=== PATIENT | male | born 1970 | race Caucasian/White ===

== ENCOUNTER 2017-07-18 03:25 | Emergency (ER) | payer OTHER ==
[~2017-07-18] VITALS: Ht 170.2 cm; Wt 94.8 kg
[~2017-07-18 03:25] MED LIST: ACET-6134 PO; DIVA500T1 PO; LORA-476 PO
[2017-07-18] MEDS ORDERED: NACL 0.9% 1,000 ML IV ONE (03:35)
[2017-07-18 03:37] VITALS: BP 135/88
--- NOTE | 2017-07-18 03:44 | NUR ---
LAB at bedside.
--- NOTE | 2017-07-18 03:44 | NUR ---
Patient ambulated to bed 07.
--- NOTE | 2017-07-18 03:50 | NUR ---
GAUGE 20 IV LINE ESTABLISHED TO THE LEFT WRIST. BLOOD ALSO DRAWN AND SENT TO THE LAB.
--- NOTE | 2017-07-18 03:53 | NUR ---
NS 1 LITER BOLUS GIVEN.
[2017-07-18 03:55] LABS: BASOPHILS # (AUTO) 0.3 K/uL (0.00-0.22); BASOPHILS % (AUTO) 3.6 % (0.0-2.0); EOSINOPHILS # (AUTO) 0.2 K/uL (0-0.4); EOSINOPHILS % (AUTO) 2.4 % (0.0-4.0); HEMATOCRIT 47.4 % (36-52); HEMOGLOBIN 16.5 g/dL (12.0-18.0); LYMPHOCYTES # (AUTO) 2.5 K/uL (2.0-11.5); LYMPHOCYTES % (AUTO) 31.7 % (20.5-51.1); MEAN CORPUSCULAR HEMOGLOBIN 33 pg (27-31); MEAN CORPUSCULAR HGB CONC 35 g/dL (33-37); MEAN CORPUSCULAR VOLUME 94 fL (80-94); MONOCYTES # (AUTO) 0.6 K/uL (0.8-1.0); MONOCYTES % (AUTO) 7.3 % (1.7-9.3); NEUTROPHILS # (AUTO) 4.4 K/uL (1.8-7.7); PLATELET COUNT (AUTO) 220 K/uL (140-450); RED BLOOD CELL COUNT(AUTO) 5.05 MIL/uL (4.20-6.10); RED CELL DISTRIBUTION WIDTH 12.3 % (11.6-13.7)
--- NOTE | 2017-07-18 04:12 | NUR ---
WENT FOR ABDOMINAL SERIES VIA WHEELCHAIR.
[2017-07-18 04:23] LABS: CARBON DIOXIDE 22.6 mmol/L (21-32)
[2017-07-18 04:24] LABS: CREATININE 0.8 mg/dL (0.7-1.3); TOTAL BILIRUBIN 0.4 mg/dL (0.0-1.0)
[2017-07-18 04:25] LABS: ALBUMIN 3.7 g/dL (3.4-5.0)
--- NOTE | 2017-07-18 04:25 | NUR ---
BACK FROM X-RAY.
[2017-07-18 04:26] LABS: ANION GAP 12.4 (8-16)
--- NOTE | 2017-07-18 04:43 | NUR ---
Dr. Curtis evaluating patient at bedside.
[2017-07-18 04:59] VITALS: BP 127/72
== END 2017-07-18 04:59 | disposition home or self-care (01) ==
LOC: MED 03:25
DX: K52.9 Noninfective gastroenteritis and colitis, unspecified (principal); K59.00 Constipation, unspecified; R03.0 Elevated blood-pressure reading, without diagnosis of hypertension; F32.9 Major depressive disorder, single episode, unspecified; F41.9 Anxiety disorder, unspecified; Z88.5 Allergy status to narcotic agent; Z88.8 Allergy status to other drugs, medicaments and biological substances; Z79.899 Other long term (current) drug therapy
CPT/HCPCS: 36415; 74022; 80053; 85025; 96360; 99285; J7030

== ENCOUNTER 2017-10-25 07:33 | Emergency (ER) | payer OTHER ==
[~2017-10-25] VITALS: Ht 170.2 cm; Wt 95.7 kg
--- NOTE | 2017-10-25 07:40 | NUR ---
Patient to bed 08.
[2017-10-25 07:41] VITALS: BP 129/75
--- NOTE | 2017-10-25 07:50 | NUR ---
PATIENT PRESENTS TO ED WITH c/o headache and feeling of dehydration . PT STATES he woke up this morning feeling dehydrated and dizzy. Patient states he takes Depakote for severe depression . ; SKIN IS PINK/WARM/DRY; AAOX4 WITH EVEN AND STEADY GAIT; LUNGS CLEAR BL; HR EVEN AND REGULAR; PT DENIES ANY FEVER, CP, SOB, OR COUGH AT THIS TIME; PATIENT STATES PAIN OF 8/10 AT THIS TIME; VSS; PATIENT POSITIONED FOR COMFORT; HOB ELEVATED; BEDRAILS UP X2; BED DOWN. ER MD MADE AWARE OF PT STATUS.
[2017-10-25] MEDS ORDERED: NACL 0.9% 1,000 ML IV ONE (07:55)
[2017-10-25] MEDS ORDERED: ACETAMINOPHEN/CODEINE 300/30MG 1 TAB PO ONE (08:20)
--- NOTE | 2017-10-25 08:31 | NUR ---
Pt back from CT via [facility].
[2017-10-25 08:44] LABS: BASOPHILS # (AUTO) 0.2 K/uL (0.00-0.22); BASOPHILS % (AUTO) 3.5 % (0.0-2.0); EOSINOPHILS # (AUTO) 0.1 K/uL (0-0.4); EOSINOPHILS % (AUTO) 2.3 % (0.0-4.0); HEMATOCRIT 50.7 % (36-52); HEMOGLOBIN 16.2 g/dL (12.0-18.0); LYMPHOCYTES # (AUTO) 1.7 K/uL (2.0-11.5); LYMPHOCYTES % (AUTO) 31.2 % (20.5-51.1); MEAN CORPUSCULAR HEMOGLOBIN 31 pg (27-31); MEAN CORPUSCULAR HGB CONC 32 g/dL (33-37); MEAN CORPUSCULAR VOLUME 96 fL (80-94); MONOCYTES # (AUTO) 0.5 K/uL (0.8-1.0); MONOCYTES % (AUTO) 9.9 % (1.7-9.3); NEUTROPHILS % (AUTO) 53.1 % (42.2-75.2); PLATELET COUNT (AUTO) 219 K/uL (140-450); RED BLOOD CELL COUNT(AUTO) 5.26 MIL/uL (4.20-6.10); RED CELL DISTRIBUTION WIDTH 12.4 % (11.6-13.7); WHITE BLOOD COUNT (AUTO) 5.5 K/uL (4.8-10.8)
[2017-10-25 09:00] LABS: ANION GAP 11.7 (8-16); CARBON DIOXIDE 25.6 mmol/L (21-32); CREATININE 0.8 mg/dL (0.7-1.3); POTASSIUM 4.3 mmol/L (3.5-5.1)
[2017-10-25 09:05] LABS: ALBUMIN 3.6 g/dL (3.4-5.0); TOTAL BILIRUBIN 0.5 mg/dL (0.0-1.0)
[2017-10-25 09:43] VITALS: BP 119/73
--- NOTE | 2017-10-25 09:43 | NUR ---
Patient discharged with v/s stable. Written and verbal after care instructions given and explained. Patient verbalized understanding. Ambulatory with steady gait. All questions addressed prior to discharge. Advised to follow up with PMD.
== END 2017-10-25 09:43 | disposition home or self-care (01) ==
LOC: MED 07:33
DX: Z88.8 Allergy status to other drugs, medicaments and biological substances (principal); Z79.899 Other long term (current) drug therapy
CPT/HCPCS: 36415; 70450; 80053; 85025; 96360; 99285; J7030

== ENCOUNTER 2018-01-07 01:40 | Emergency (ER) | payer OTHER ==
[~2018-01-07] VITALS: Ht 170.2 cm; Wt 95.9 kg
[2018-01-07 01:46] VITALS: BP 141/72
--- NOTE | 2018-01-07 01:53 | NUR ---
PATIENT AMBULATED TO BED 11
--- NOTE | 2018-01-07 02:01 | NUR ---
47/M CAME IN W C/O N/V X1, COUGH, RUNNY NOSE, HEADACHE X1 DAY. ALL LUNG SOUNDS CBTA, 18RR EVEN AND UNLABORED. BS ACTIVE X4, ABD SOFT, ROUND -TENDERNESS, DENIES FEVER/CHILLS. PMH: DEPRESSION
[2018-01-07] MEDS ORDERED: diphenhydrAMINE 50 MG/ML VIAL IVP ONE (02:40)
[2018-01-07] MEDS ORDERED: PROCHLORPERAZINE 10 MG/2 ML VIAL IVP ONE (02:40)
[2018-01-07] MEDS ORDERED: NACL 0.9% 1,000 ML IV ONE (02:40)
[2018-01-07 04:43] VITALS: BP 131/70
--- NOTE | 2018-01-17 05:17 | NUR ---
01/07/18, 0410: END TIME NS 1000ML
== END 2018-01-07 04:43 | disposition home or self-care (01) ==
LOC: MED 01:40
DX: A08.4 Viral intestinal infection, unspecified (principal); E86.0 Dehydration; F32.9 Major depressive disorder, single episode, unspecified; Z88.5 Allergy status to narcotic agent; Z88.8 Allergy status to other drugs, medicaments and biological substances; Z79.899 Other long term (current) drug therapy
CPT/HCPCS: 36415; 87804; 96361; 96374; 96375; 99284; J0780; J1200; J7030

== ENCOUNTER 2018-03-21 06:55 | Emergency (ER) | payer OTHER ==
[~2018-03-21] VITALS: Ht 170.2 cm; Wt 94.3 kg
[2018-03-21 07:11] VITALS: BP 117/74
--- NOTE | 2018-03-21 07:18 | NUR ---
47M BIB SELF WITH C/O "FEELING ANXIETY" X 2 DAYS, PROGRESSIVELY GETTING WORSE. PT STS HX OF ANXIETY. PT ALSO REPORTS OF CONGESION AND 10/10 INTERMITTENT "ALL OVER HEADACHE". PT IS AOX4 WITH STEADY GAIT, CLEAR SPEECH. RR ARE EVEN AND UNLABORED. AWAITING ER MD HUGHES. WILL CONTINUE TO MONITOR.
--- NOTE | 2018-03-21 07:59 | NUR ---
lab by bedside
[2018-03-21 08:24] LABS: BASOPHILS # (AUTO) 0.1 K/uL (0.00-0.22); BASOPHILS % (AUTO) 1.2 % (0.0-2.0); EOSINOPHILS # (AUTO) 0.2 K/uL (0-0.4); EOSINOPHILS % (AUTO) 2.9 % (0.0-4.0); HEMATOCRIT 46.7 % (36-52); HEMOGLOBIN 15.8 g/dL (12.0-18.0); LYMPHOCYTES # (AUTO) 2.5 K/uL (2.0-11.5); LYMPHOCYTES % (AUTO) 40.7 % (20.5-51.1); MEAN CORPUSCULAR HEMOGLOBIN 32 pg (27-31); MEAN CORPUSCULAR HGB CONC 34 g/dL (33-37); MEAN CORPUSCULAR VOLUME 94.2 fL (80-94); MONOCYTES # (AUTO) 0.8 K/uL (0.8-1.0); MONOCYTES % (AUTO) 13.8 % (1.7-9.3); NEUTROPHILS # (AUTO) 2.5 K/uL (1.8-7.7); NEUTROPHILS % (AUTO) 41.4 % (42.2-75.2); PLATELET COUNT (AUTO) 206 K/uL (140-450); RED BLOOD CELL COUNT(AUTO) 4.96 MIL/uL (4.20-6.10); RED CELL DISTRIBUTION WIDTH 13.3 % (11.6-13.7); WHITE BLOOD COUNT (AUTO) 6.1 K/uL (4.8-10.8)
[2018-03-21 08:30] LABS: ANION GAP 12.5 (8-16); CARBON DIOXIDE 26.3 mmol/L (21-32); CREATININE 0.7 mg/dL (0.7-1.3); POTASSIUM 3.8 mmol/L (3.5-5.1)
[2018-03-21 08:35] LABS: ALBUMIN 3.5 g/dL (3.4-5.0); TOTAL BILIRUBIN 0.4 mg/dL (0.0-1.0)
[2018-03-21 10:10] VITALS: BP 121/70
== END 2018-03-21 10:10 | disposition home or self-care (01) ==
LOC: MED 06:55
DX: F41.9 Anxiety disorder, unspecified (principal); Z88.6 Allergy status to analgesic agent
CPT/HCPCS: 36415; 71045; 80053; 85025; 99285; Q0092

== ENCOUNTER 2018-04-04 00:33 | Emergency (ER) | payer OTHER ==
[~2018-04-04] VITALS: Ht 170.2 cm; Wt 94.8 kg
[2018-04-04 00:38] VITALS: BP 154/96
--- NOTE | 2018-04-04 00:43 | NUR ---
PT AMBULATED TO ER BED 02
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
--- NOTE | 2018-04-04 01:19 | NUR ---
Patient appears to be resting comfortably in bed. Vital Signs within normal limits. Respirations even and unlabored.
[2018-04-04] MEDS ORDERED: LORazepam 2 MG/ML VIAL IM ONE (02:15)
[2018-04-04] MEDS ORDERED: BACITRACIN OINT 500 UNITS/GM PKT TP ONE (02:15)
[2018-04-04] MEDS ORDERED: KETOROLAC 60 MG/2 ML VIAL IM ONE (02:15)
[2018-04-04] MEDS ORDERED: LIDOCAINE 1% ***ER ONLY *** 10 MG/ML VIAL INJ ONE (02:15)
[2018-04-04] MEDS ORDERED: LIDOCAINE MPF 1% - **ER/OR** 10 ML ONE (02:24)
--- NOTE | 2018-04-04 03:20 | NUR ---
Patient has a LARGE laceration to RT SIDE OF FACE. Dr. DELEON applied sutures using sterile technique. Edges well approximated. Site cleansed with BETADINE AND NORMAL SALINE. No bleeding noted. Pt tolerated well.
[2018-04-04 04:09] VITALS: BP 124/77
== END 2018-04-04 04:13 | disposition home or self-care (01) ==
LOC: MED 00:33
DX: S01.411A Laceration without foreign body of right cheek and temporomandibular area, initial encounter (principal); S21.111A Laceration without foreign body of right front wall of thorax without penetration into thoracic cavity, initial encounter; Z88.8 Allergy status to other drugs, medicaments and biological substances; W26.0XXA Contact with knife, initial encounter; Y93.89 Activity, other specified; Y99.8 Other external cause status; Y92.89 Other specified places as the place of occurrence of the external cause
CPT/HCPCS: 12002; 12015; 96372; 99284; J1885; J2001; J2060

== ENCOUNTER 2018-06-06 05:15 | Emergency (ER) | payer OTHER ==
[~2018-06-06] VITALS: Ht 170.2 cm; Wt 98.0 kg
[2018-06-06 05:20] VITALS: BP 151/79
--- NOTE | 2018-06-06 05:27 | NUR ---
PATIENT PRESENTS TO ED WITH ABD PAIN IN X4 QUADRANTS WITH N/V/D X3 HOURS. PT STATES HX OF IBS AND CANNOT FIND COMFORT AT THIS TIME. DENIES N/V/D; SKIN IS PINK/WARM/DRY; AAOX4 WITH EVEN AND STEADY GAIT; LUNGS CLEAR BL; HR EVEN AND REGULAR; PT DENIES ANY FEVER, CP, SOB, OR COUGH AT THIS TIME; PATIENT STATES PAIN OF 6/10 AT THIS TIME; VSS; PATIENT POSITIONED FOR COMFORT; HOB ELEVATED; BEDRAILS UP X2; BED DOWN. ER MD MADE AWARE OF PT STATUS. CONTINUE TO MONITOR.
--- NOTE | 2018-06-06 05:27 | NUR ---
PT AMBULATED TO ER BED 05
[2018-06-06] MEDS ORDERED: NACL 0.9% 1,000 ML IV ONE (06:20)
[2018-06-06] MEDS ORDERED: ONDANSETRON 4 MG/2 ML VIAL IVP ONE (06:20)
--- NOTE | 2018-06-06 07:00 | NUR ---
REPORT GIVEN TO DOMONIQUE ANGUIANO.
--- NOTE | 2018-06-06 07:00 | NUR ---
RECEIVED REPORT FROM CARMINA ANGUIANO. Patient appears to be resting comfortably in bed. Vital Signs within normal limits. Respirations even and unlabored.WILL CONTINUE TO MONITOR.
[2018-06-06 07:25] LABS: HEMATOCRIT 47.1 % (36-52); HEMOGLOBIN 15.9 g/dL (12.0-18.0); MEAN CORPUSCULAR HEMOGLOBIN 32 pg (27-31); MEAN CORPUSCULAR HGB CONC 34 g/dL (33-37); MEAN CORPUSCULAR VOLUME 95.1 fL (80-94); PLATELET COUNT (AUTO) 234 K/uL (140-450); RED BLOOD CELL COUNT(AUTO) 4.95 MIL/uL (4.20-6.10); RED CELL DISTRIBUTION WIDTH 13.2 % (11.6-13.7); WHITE BLOOD COUNT (AUTO) 9.3 K/uL (4.8-10.8)
[2018-06-06 07:31] LABS: ANION GAP 12.7 (8-16); CARBON DIOXIDE 24.4 mmol/L (21-32); POTASSIUM 4.1 mmol/L (3.5-5.1)
[2018-06-06 07:36] LABS: ALBUMIN 3.6 g/dL (3.4-5.0); TOTAL BILIRUBIN 0.2 mg/dL (0.0-1.0)
[2018-06-06 07:49] LABS: EOSINOPHILS % (MANUAL) 1 % (0-4); LYMPHOCYTES % (MANUAL) 26 % (20-46); MONOCYTES % (MANUAL) 8 % (5-12)
--- NOTE | 2018-06-06 08:30 | NUR ---
Patient appears to be resting comfortably in bed. Vital Signs within normal limits. Respirations even and unlabored.will continue to monitor.
[2018-06-06 08:31] LABS: APPEARANCE,URINE CLEAR (CLEAR); BILIRUBIN,URINE NEGATIVE (NEGATIVE); BLOOD, URINE TRACE-I (NEGATIVE); COLOR,URINE YELLOW (YELLOW); LEUKOCYTE ESTERASE ,URINE NEGATIVE (NEGATIVE); NITRITE, URINE NEGATIVE (NEGATIVE); PH,URINE 5.5 (5.0-9.0); UGLUCOSE NEGATIVE (NEGATIVE)
[2018-06-06 08:54] LABS: RBC,URINE 0-5 (RARE) /HPF (0-5); WBC,URINE 0-5 (RARE) /HPF (0-5)
[2018-06-06 09:11] VITALS: BP 116/68
--- NOTE | 2018-06-06 09:11 | NUR ---
Patient discharged with v/s stable. Written and verbal after care instructions given and explained. Patient alert, oriented and verbalized understanding of instructions. Ambulatory with steady gait. All questions addressed prior to discharge. ID band removed. Patient advised to follow up with PMD. Rx of YULY LOYA & XIOMARA given. Patient educated on indication of medication including possible reaction and side effects. Opportunity to ask questions provided and answered.
== END 2018-06-06 09:11 | disposition home or self-care (01) ==
LOC: MED 05:15
DX: K52.9 Noninfective gastroenteritis and colitis, unspecified (principal); Z88.6 Allergy status to analgesic agent; Z79.899 Other long term (current) drug therapy
CPT/HCPCS: 36415; 74022; 74176; 80053; 81001; 82150; 83690; 85025; 96361; 96374; 99285; J2405; J7030

== ENCOUNTER 2018-09-23 20:46 | Emergency (ER) | payer OTHER ==
[~2018-09-23] VITALS: Ht 170.2 cm; Wt 97.1 kg
[2018-09-23 20:48] VITALS: BP 125/90
--- NOTE | 2018-09-23 20:51 | NUR ---
TO LOBBY A/W BED, SKY TAVERA NOTED
--- NOTE | 2018-09-23 21:58 | NUR ---
PT AMBULATED TO BED 11.
[2018-09-23] MEDS ORDERED: KETOROLAC 30 MG/ML VIAL IM ONE (22:25)
[2018-09-23] MEDS ORDERED: ONDANSETRON 4 MG ODT PO ONE (22:25)
[2018-09-24 00:25] VITALS: BP 125/90
--- NOTE | 2018-09-24 00:25 | NUR ---
Patient discharged with v/s stable. Written and verbal after care instructions given and explained. Patient alert, oriented and verbalized understanding of instructions. Ambulatory with steady gait. All questions addressed prior to discharge. ID band removed. Patient advised to follow up with PMD. Rx of Imitrex given. Patient educated on indication of medication including possible reaction and side effects. Opportunity to ask questions provided and answered.
== END 2018-09-24 00:25 | disposition home or self-care (01) ==
LOC: MED 20:46
DX: R51 Headache (principal); R11.10 Vomiting, unspecified; J45.909 Unspecified asthma, uncomplicated; F17.210 Nicotine dependence, cigarettes, uncomplicated; Z88.6 Allergy status to analgesic agent; Z88.8 Allergy status to other drugs, medicaments and biological substances
CPT/HCPCS: 96372; 99283; J1885; Q0162

== ENCOUNTER 2018-09-26 06:20 | Emergency (ER) | payer OTHER ==
[~2018-09-26] VITALS: Ht 170.2 cm; Wt 97.1 kg
[2018-09-26 06:25] VITALS: BP 136/90
--- NOTE | 2018-09-26 06:25 | NUR ---
TO BED # 6 AMBULATORY, REPORT GIVEN TO JAVIER ANGUIANO
--- NOTE | 2018-09-26 06:40 | NUR ---
48/M CAME IN ED WITH BROTHER, C/O ANXIETY, DIZZINESS AND CP, INTERMITTENTLY X6 DAYS. PT REPORTS 10/10 STERNAL PAIN, NONRADIATING. PT REPORTS N/V. AOX4, AMBULATORY, RR EVEN AND UNLABORED, PT REPORTS FEELING ANXIOUS, EXCESSIVE SPEECH NOTED. PT REPORTS TAKING ZOFRAN, ATIVAN AND TYLENOL WITH NO RELIEF. LUNG SOUNDS CLEAR BL. BS ACTIVE X4, ABD SOFT ROUND NONTENDER. HX ASTHMA, ANXIETY, DEPRESSION, BIPOLAR, IBS
--- NOTE | 2018-09-26 07:00 | NUR ---
DR PHILLIP AT BEDSIDE TO EVALUATE PT
[2018-09-26] MEDS ORDERED: ASPIRIN 81 MG TAB.CHEW PO ONE (07:10)
[2018-09-26] MEDS ORDERED: PANTOPRAZOLE 40 MG INJ VIAL IVP ONE (07:10)
[2018-09-26] MEDS ORDERED: ALUMINUM HYD/MAG/SIMETHICONE 30 ML UDC PO ONE (07:10)
[2018-09-26] MEDS ORDERED: LIDOCAINE VISCOUS 2% 20 ML UDC PO ONE (07:10)
--- NOTE | 2018-09-26 07:11 | NUR ---
received report from Jude ANGUIANO.
[2018-09-26 07:27] LABS: BASOPHILS # (AUTO) 0.1 K/uL (0.00-0.22); BASOPHILS % (AUTO) 1.2 % (0.0-2.0); EOSINOPHILS # (AUTO) 0.1 K/uL (0-0.4); EOSINOPHILS % (AUTO) 1.5 % (0.0-4.0); HEMATOCRIT 46.4 % (36-52); LYMPHOCYTES # (AUTO) 2.5 K/uL (2.0-11.5); LYMPHOCYTES % (AUTO) 30.2 % (20.5-51.1); MEAN CORPUSCULAR HEMOGLOBIN 32 pg (27-31); MEAN CORPUSCULAR HGB CONC 34 g/dL (33-37); MEAN CORPUSCULAR VOLUME 93.6 fL (80-94); MONOCYTES # (AUTO) 0.9 K/uL (0.8-1.0); MONOCYTES % (AUTO) 11.1 % (1.7-9.3); NEUTROPHILS # (AUTO) 4.6 K/uL (1.8-7.7); PLATELET COUNT (AUTO) 207 K/uL (140-450); RED BLOOD CELL COUNT(AUTO) 4.96 MIL/uL (4.20-6.10); RED CELL DISTRIBUTION WIDTH 13.2 % (11.6-13.7); WHITE BLOOD COUNT (AUTO) 8.2 K/uL (4.8-10.8)
--- NOTE | 2018-09-26 07:29 | NUR ---
patient medicated per er md tucker orders. brother by bedside. vsnilda. ned.
[2018-09-26 07:44] LABS: ANION GAP 14.5 (8-16); CARBON DIOXIDE 22.9 mmol/L (21-32); CREATININE 0.9 mg/dL (0.7-1.3); POTASSIUM 3.4 mmol/L (3.5-5.1)
[2018-09-26 07:50] LABS: ALBUMIN 3.5 g/dL (3.4-5.0); TOTAL BILIRUBIN 0.3 mg/dL (0.0-1.0)
--- NOTE | 2018-09-26 08:13 | NUR ---
patient resting with eyes closed. awaiting for radiology and lab results. vss. nad.
[2018-09-26] MEDS ORDERED: NITROGLYCERIN 2% 1 GM PKT TP ONE (08:25)
--- NOTE | 2018-09-26 08:36 | NUR ---
MEDICATED WITH NITROGLYCERINE BP 116/73 DENIES CHEST PAIN
[2018-09-26] MEDS ORDERED: ACETAMINOPHEN 325 MG TAB PO ONE (08:50)
--- NOTE | 2018-09-26 09:27 | NUR ---
Patient to be transferred for continuation of care. Is being transferred due to continuation of care. Receiving facility has accepting physician and available space. ER physician has signed transfer form. Patient or responsible green party has agreed to transfer and signed form. Patient belongings inventoried and will be sent with patient. Copy of nursing notes, lab reports, EKG, Physicians Orders and X-rays to be sent with patient. Report called to Dillon Barrios RN at receiving facility. [facility] ambulance service has been called for transfer. ETA is [phone].
--- NOTE | 2018-09-26 09:47 | NUR ---
[facility] ARRIVED FOR PT TRANSPORT TO [facility]
--- NOTE | 2018-09-26 10:01 | NUR ---
PATIENT LEFT ER VIA [facility] WITH [facility] DRIVER AND EMT. VSS. NAD. STABLE FOR TRANSFER. PT DENIES ANY CP, SOB, CHANGES IN VISION, OR DIZZINESS. PT EXITED ER WITHOUT INCIDIENT.
[2018-09-26 10:02] VITALS: BP 120/73
== END 2018-09-26 10:01 | disposition short-term general hospital (02) ==
LOC: MED 06:20
DX: R07.89 Other chest pain (principal); R11.2 Nausea with vomiting, unspecified; R10.10 Upper abdominal pain, unspecified; I10 Essential (primary) hypertension; F31.9 Bipolar disorder, unspecified; F41.9 Anxiety disorder, unspecified; K58.9 Irritable bowel syndrome, unspecified; J45.909 Unspecified asthma, uncomplicated; Z79.1 Long term (current) use of non-steroidal anti-inflammatories (NSAID); Z79.899 Other long term (current) drug therapy; Z88.8 Allergy status to other drugs, medicaments and biological substances
CPT/HCPCS: 36415; 71045; 80053; 82550; 82553; 84484; 85025; 93005; 96374; 99285; C9113; Q0092

== ENCOUNTER 2018-10-17 21:46 | Emergency (ER) | payer OTHER ==
[~2018-10-17] VITALS: Ht 170.2 cm; Wt 97.1 kg
[2018-10-17 22:01] VITALS: BP 142/76
--- NOTE | 2018-10-17 22:03 | NUR ---
TO LOBBY A/W BED, SKY KUNZ NOTED
--- NOTE | 2018-10-17 23:01 | NUR ---
Patient ambulated to bed 1. RN evaluating patient at bedside.
--- NOTE | 2018-10-17 23:20 | NUR ---
PT BIB SELF C/O ANXIETY, DEPRESSION, VOMITNG, NECK PAIN, BODYACHES, DIARRHEA, DIZZINESS, INSOMNIA, FOR 1 DAYS. PT DENIES N/V/D; SKIN IS INTACT, PINK/WARM/DRY; AAOX4, PERRL, WITH EVEN AND STEADY GAIT; LUNGS CLEAR BL, BREATHING UNLABORED; HR EVEN AND REGULAR, BL PERIPHERAL PULSES PRESENT; BS ACTIVE X4, NO TENDERNESS TO PALPATION. PT DENIES ANY FEVER, CP, SOB, OR COUGH AT THIS TIME; PT STATES 10/10 PAIN AT THIS TIME; VSS; PATIENT POSITIONED FOR COMFORT; HOB ELEVATED; BEDRAILS UP X2; BED DOWN.
[2018-10-17] MEDS ORDERED: LORazepam 2 MG/ML VIAL IM ONE (23:50)
[2018-10-18 00:39] LABS: ANION GAP 12.4 (8-16); CARBON DIOXIDE 28.4 mmol/L (21-32); POTASSIUM 4.8 mmol/L (3.5-5.1)
[2018-10-18 00:55] VITALS: BP 132/72
== END 2018-10-18 00:59 | disposition home or self-care (01) ==
LOC: MED 21:46
DX: F41.9 Anxiety disorder, unspecified (principal); R20.2 Paresthesia of skin; E86.0 Dehydration; R11.10 Vomiting, unspecified; R19.7 Diarrhea, unspecified; J45.909 Unspecified asthma, uncomplicated; Z88.8 Allergy status to other drugs, medicaments and biological substances; Z79.899 Other long term (current) drug therapy
CPT/HCPCS: 36415; 80048; 96372; 99284; J2060; 99283

== ENCOUNTER 2018-10-20 00:15 | Emergency (ER) | payer OTHER ==
[~2018-10-20] VITALS: Ht 170.2 cm; Wt 97.7 kg
[2018-10-20 00:30] VITALS: BP 140/80
[2018-10-20] MEDS ORDERED: NACL 0.9% 1,000 ML IV ONE (00:55)
[2018-10-20] MEDS ORDERED: KETOROLAC 30 MG/ML VIAL IVP ONE (00:55)
[2018-10-20 01:22] LABS: BASOPHILS # (AUTO) 0.1 K/uL (0.00-0.22); EOSINOPHILS # (AUTO) 0.1 K/uL (0-0.4); EOSINOPHILS % (AUTO) 1.4 % (0.0-4.0); HEMATOCRIT 49.3 % (36-52); HEMOGLOBIN 16.5 g/dL (12.0-18.0); LYMPHOCYTES # (AUTO) 1.8 K/uL (2.0-11.5); LYMPHOCYTES % (AUTO) 29.1 % (20.5-51.1); MEAN CORPUSCULAR HEMOGLOBIN 32 pg (27-31); MEAN CORPUSCULAR HGB CONC 34 g/dL (33-37); MEAN CORPUSCULAR VOLUME 94.4 fL (80-94); MONOCYTES # (AUTO) 0.8 K/uL (0.8-1.0); MONOCYTES % (AUTO) 12.8 % (1.7-9.3); NEUTROPHILS # (AUTO) 3.5 K/uL (1.8-7.7); NEUTROPHILS % (AUTO) 55.7 % (42.2-75.2); PLATELET COUNT (AUTO) 235 K/uL (140-450); RED BLOOD CELL COUNT(AUTO) 5.22 MIL/uL (4.20-6.10); RED CELL DISTRIBUTION WIDTH 13.4 % (11.6-13.7); WHITE BLOOD COUNT (AUTO) 6.2 K/uL (4.8-10.8)
[2018-10-20 01:33] LABS: ANION GAP 12.4 (8-16); CREATININE 0.9 mg/dL (0.7-1.3); POTASSIUM 4.4 mmol/L (3.5-5.1)
[2018-10-20 01:39] LABS: ALBUMIN 3.8 g/dL (3.4-5.0); TOTAL BILIRUBIN 0.4 mg/dL (0.0-1.0)
[2018-10-20 03:55] LABS: APPEARANCE,URINE CLEAR (CLEAR); BILIRUBIN,URINE NEGATIVE (NEGATIVE); BLOOD, URINE NEGATIVE (NEGATIVE); COLOR,URINE YELLOW (YELLOW); LEUKOCYTE ESTERASE ,URINE NEGATIVE (NEGATIVE); NITRITE, URINE NEGATIVE (NEGATIVE); PH,URINE 5.5 (5.0-9.0); UGLUCOSE NEGATIVE (NEGATIVE)
[2018-10-20 04:30] VITALS: BP 140/80
== END 2018-10-20 04:30 | disposition home or self-care (01) ==
LOC: MED 00:15
DX: E86.0 Dehydration (principal); J45.909 Unspecified asthma, uncomplicated; R19.7 Diarrhea, unspecified; Z88.8 Allergy status to other drugs, medicaments and biological substances; Z79.899 Other long term (current) drug therapy; Z79.1 Long term (current) use of non-steroidal anti-inflammatories (NSAID)
CPT/HCPCS: 36415; 80053; 81003; 82150; 83690; 85025; 96361; 96374; 99283; J1885; J7030

== ENCOUNTER 2018-11-26 00:25 | Emergency (ER) | payer OTHER ==
[~2018-11-26] VITALS: Ht 170.2 cm; Wt 97.1 kg
[2018-11-26 00:38] VITALS: BP 132/79
[2018-11-26] MEDS ORDERED: KETOROLAC 30 MG/ML VIAL IM ONE (01:10)
[2018-11-26] MEDS ORDERED: LORazepam 1 MG TAB PO ONE (01:10)
[2018-11-26] MEDS ORDERED: DICYCLOMINE 20 MG/2 ML VIAL IM ONE (01:10)
[2018-11-26 01:52] VITALS: BP 129/81
== END 2018-11-26 01:52 | disposition home or self-care (01) ==
LOC: MED 00:25
DX: R51 Headache (principal); R19.7 Diarrhea, unspecified; F41.9 Anxiety disorder, unspecified; J45.909 Unspecified asthma, uncomplicated; F03.90 Unspecified dementia, unspecified severity, without behavioral disturbance, psychotic disturbance, mood disturbance, and anxiety; Z79.899 Other long term (current) drug therapy; Z88.8 Allergy status to other drugs, medicaments and biological substances
CPT/HCPCS: 96372; 99284; J0500; J1885

== ENCOUNTER 2019-01-12 21:10 | Emergency (ER) | payer OTHER ==
[~2019-01-12] VITALS: Ht 170.2 cm; Wt 98.0 kg
[2019-01-12 21:36] VITALS: BP 154/87
--- NOTE | 2019-01-12 21:39 | NUR ---
PT RETURNED TO LOBBY IN STABLE CONDITION
--- NOTE | 2019-01-12 23:10 | NUR ---
PATIENT PRESENTS TO ED WITH C/O N/V/FEVER SINCE SATURDAY AND GENERALIZED WEAKNESS . PATIENT STATES PAIN OF 10/10 AT THIS TIME; VSS; PATIENT POSITIONED FOR COMFORT; HOB ELEVATED; BEDRAILS UP X2; BED DOWN. ER MD MADE AWARE OF PT STATUS.
--- NOTE | 2019-01-12 23:10 | NUR ---
PT TAKEN TO BED 2
[2019-01-12] MEDS ORDERED: NACL 0.9% 500 ML IV ONE (23:12)
[2019-01-12] MEDS ORDERED: ONDANSETRON 4 MG/2 ML VIAL IVP ONE (23:15)
[2019-01-12 23:33] LABS: RED BLOOD CELL COUNT(AUTO) 5.42 MIL/uL (4.20-6.10); WHITE BLOOD COUNT (AUTO) 7.7 K/uL (4.8-10.8)
[2019-01-12 23:34] LABS: HEMATOCRIT 51.2 % (36-52); HEMOGLOBIN 17.2 g/dL (12.0-18.0); MEAN CORPUSCULAR HEMOGLOBIN 32 pg (27-31); MEAN CORPUSCULAR HGB CONC 34 g/dL (33-37); MEAN CORPUSCULAR VOLUME 94.4 fL (80-94); RED CELL DISTRIBUTION WIDTH 13.1 % (11.6-13.7)
[2019-01-12 23:35] LABS: EOSINOPHILS % (AUTO) 0.9 % (0.0-4.0); LYMPHOCYTES % (AUTO) 11.7 % (20.5-51.1); MONOCYTES % (AUTO) 7.2 % (1.7-9.3); NEUTROPHILS % (AUTO) 79.7 % (42.2-75.2); PLATELET COUNT (AUTO) 196 K/uL (140-450)
[2019-01-12 23:36] LABS: BASOPHILS % (AUTO) 0.5 % (0.0-2.0); EOSINOPHILS # (AUTO) 0.1 K/uL (0-0.4); LYMPHOCYTES # (AUTO) 0.9 K/uL (2.0-11.5); MONOCYTES # (AUTO) 0.6 K/uL (0.8-1.0); NEUTROPHILS # (AUTO) 6.1 K/uL (1.8-7.7)
[2019-01-12 23:38] LABS: CARBON DIOXIDE 29.2 mmol/L (21-32); POTASSIUM 4.2 mmol/L (3.5-5.1)
[2019-01-12 23:44] LABS: ALBUMIN 3.9 g/dL (3.4-5.0); TOTAL BILIRUBIN 0.5 mg/dL (0.0-1.0)
[2019-01-12] MEDS ORDERED: MORPHINE SULFATE 4 MG/ML SYR IVP ONE (23:55)
--- NOTE | 2019-01-13 00:40 | NUR ---
PT DENIES HAVING ANY PAIN NOW.
[2019-01-13 00:45] VITALS: BP 132/68
--- NOTE | 2019-01-13 00:45 | NUR ---
Patient discharged with v/s stable. Written and verbal after care instructions given and explained. Patient alert, oriented and verbalized understanding of instructions. Ambulatory with steady gait. All questions addressed prior to discharge. ID band removed. Patient advised to follow up with PMD. Rx of ZOFRAN 4MG, TRAMADOL 50MG given. Patient educated on indication of medication including possible reaction and side effects. Opportunity to ask questions provided and answered.
== END 2019-01-13 00:45 | disposition home or self-care (01) ==
LOC: MED 21:10
DX: A08.4 Viral intestinal infection, unspecified (principal); Z88.6 Allergy status to analgesic agent; Z88.8 Allergy status to other drugs, medicaments and biological substances; Z79.1 Long term (current) use of non-steroidal anti-inflammatories (NSAID); Z79.899 Other long term (current) drug therapy; J45.909 Unspecified asthma, uncomplicated
CPT/HCPCS: 36415; 80053; 85025; 96361; 96374; 96375; 99283; J2270; J2405; J7030

== ENCOUNTER 2019-06-02 02:26 | Emergency (ER) | payer OTHER ==
[~2019-06-02] VITALS: Ht 170.2 cm; Wt 105.3 kg
[2019-06-02 02:32] VITALS: BP 179/97
[2019-06-02] MEDS ORDERED: LORazepam 2 MG/ML VIAL IVP ONE (02:45)
[2019-06-02] MEDS ORDERED: MORPHINE SULFATE 2 MG/ML SYR IVP ONE (02:45)
[2019-06-02] MEDS ORDERED: NACL 0.9% 1,000 ML IV ONE (02:45)
[2019-06-02] MEDS ORDERED: ONDANSETRON 4 MG/2 ML VIAL IVP ONE (02:45)
--- NOTE | 2019-06-02 02:47 | NUR ---
EKG PERFORMED AT BEDSIDE
--- NOTE | 2019-06-02 02:50 | NUR ---
PT TO ED WITH C/O HEADACHE WITH DIZZINESS, N/V, AND GENERALIZED WEAKNESS. PER PT "I HAVE THIS THROBBING PAIN IN MY HEAD AND IT MAKES ME NAUSEOUS AND I JUST DONT FEEL GOOD" PT ALERT TO NAME, BIRTHDAY, PLACE AND EVENT. ABD IS SOFT NON TENDER. NO NEURO DEFECITS NOTED. PT PLACED INTO BED, PENDING MD HUGHES.
[2019-06-02 02:53] LABS: APPEARANCE,URINE CLEAR (CLEAR); BILIRUBIN,URINE NEGATIVE (NEGATIVE); BLOOD, URINE TRACE-I (NEGATIVE); COLOR,URINE YELLOW (YELLOW); LEUKOCYTE ESTERASE ,URINE NEGATIVE (NEGATIVE); NITRITE, URINE NEGATIVE (NEGATIVE); UGLUCOSE NEGATIVE (NEGATIVE)
[2019-06-02 02:55] LABS: BASOPHILS # (AUTO) 0.1 K/uL (0.00-0.22); BASOPHILS % (AUTO) 0.8 % (0.0-2.0); EOSINOPHILS # (AUTO) 0.2 K/uL (0-0.4); EOSINOPHILS % (AUTO) 2.8 % (0.0-4.0); HEMATOCRIT 50.3 % (36-52); HEMOGLOBIN 17.2 g/dL (12.0-18.0); LYMPHOCYTES # (AUTO) 2.8 K/uL (2.0-11.5); LYMPHOCYTES % (AUTO) 36.1 % (20.5-51.1); MEAN CORPUSCULAR HEMOGLOBIN 32 pg (27-31); MEAN CORPUSCULAR HGB CONC 34 g/dL (33-37); MEAN CORPUSCULAR VOLUME 94.8 fL (80-94); MONOCYTES % (AUTO) 13.2 % (1.7-9.3); NEUTROPHILS # (AUTO) 3.6 K/uL (1.8-7.7); NEUTROPHILS % (AUTO) 47.1 % (42.2-75.2); PLATELET COUNT (AUTO) 223 K/uL (140-450); WHITE BLOOD COUNT (AUTO) 7.6 K/uL (4.8-10.8)
[2019-06-02 03:09] LABS: RBC,URINE 0-5 /HPF (0-5); WBC,URINE 0-5 /HPF (0-5)
[2019-06-02 03:19] LABS: ANION GAP 14.8 (8-16); CARBON DIOXIDE 26.4 mmol/L (21-32); CREATININE 0.9 mg/dL (0.7-1.3); POTASSIUM 4.2 mmol/L (3.5-5.1)
[2019-06-02 03:24] LABS: ALBUMIN 3.8 g/dL (3.4-5.0); TOTAL BILIRUBIN 0.3 mg/dL (0.0-1.0)
[2019-06-02 03:51] VITALS: BP 149/87
--- NOTE | 2019-06-02 03:51 | NUR ---
DISCHARGE PAPERS GIVEN TO PT. PT STATES, "I FEEL MUCH BETTER." 0/10 PAIN WITH VSS. PT INSTRUCTED TO F/U WITH PCP AND WHEN TO RETURN TO ER. PT VERBALLIZED UNDERSTANDING OF DC INSTRUCTIONS. ALL QUESTIONS ANSWERED. CONTINUE TO MONITOR.
== END 2019-06-02 03:51 | disposition home or self-care (01) ==
LOC: MED 02:26
DX: R51 Headache (principal); R53.1 Weakness; F41.9 Anxiety disorder, unspecified; R11.2 Nausea with vomiting, unspecified; J45.909 Unspecified asthma, uncomplicated; Z88.6 Allergy status to analgesic agent; Z88.8 Allergy status to other drugs, medicaments and biological substances; Z79.899 Other long term (current) drug therapy
CPT/HCPCS: 36415; 71045; 80053; 81001; 83690; 84484; 85025; 93005; 96361; 96374; 96375; 99284; J2060; J2270; J2405; J7030; Q0092

== ENCOUNTER 2019-06-08 14:14 | Emergency (ER) | payer OTHER ==
[~2019-06-08] VITALS: Ht 170.2 cm; Wt 97.1 kg
[2019-06-08 14:25] VITALS: BP 128/83
--- NOTE | 2019-06-08 14:25 | NUR ---
PT NAUSEA, VOMITING X 4 TIMES, AND DIARRHEA X MORE THAN 15 TIMES SINCE YESTERDAY. PT ALSO C/O DIZZINESS. HEADACHE, FATIGUE SINCE THIS MORNING AFTER AWOKE. DENIES N/V/D; SKIN IS PINK/WARM/DRY; AAOX4 WITH EVEN AND STEADY GAIT; LUNGS CLEAR BL; PT DENIES ANY FEVER, CP, SOB, OR COUGH AT THIS TIME; PATIENT STATES PAIN OF 10/10 AT THIS TIME; VSS; PATIENT POSITIONED FOR COMFORT; HOB ELEVATED; BEDRAILS UP X1; BED DOWN. ER MD MADE AWARE OF PT STATUS.
--- NOTE | 2019-06-08 14:30 | NUR ---
PT TAKEN TO BED 11.
[2019-06-08] MEDS: NACL 0.9% 1,000 ML IV ONE ×2 (15:01→15:11)
[2019-06-08] MEDS: ONDANSETRON 4 MG/2 ML VIAL IVP ONE ×2 (15:04→15:10)
[2019-06-08 15:06] LABS: BASOPHILS % (AUTO) 1.1 % (0.0-2.0); EOSINOPHILS # (AUTO) 0.1 K/uL (0-0.4); HEMATOCRIT 50.4 % (36-52); HEMOGLOBIN 17.1 g/dL (12.0-18.0); LYMPHOCYTES # (AUTO) 1.4 K/uL (2.0-11.5); LYMPHOCYTES % (AUTO) 32.4 % (20.5-51.1); MEAN CORPUSCULAR HEMOGLOBIN 32 pg (27-31); MEAN CORPUSCULAR HGB CONC 34 g/dL (33-37); MONOCYTES # (AUTO) 0.5 K/uL (0.8-1.0); MONOCYTES % (AUTO) 11.6 % (1.7-9.3); NEUTROPHILS # (AUTO) 2.3 K/uL (1.8-7.7); NEUTROPHILS % (AUTO) 52.9 % (42.2-75.2); PLATELET COUNT (AUTO) 218 K/uL (140-450); RED BLOOD CELL COUNT(AUTO) 5.36 MIL/uL (4.20-6.10); RED CELL DISTRIBUTION WIDTH 13.2 % (11.6-13.7); WHITE BLOOD COUNT (AUTO) 4.4 K/uL (4.8-10.8)
[2019-06-08] MEDS: PANTOPRAZOLE 40 MG INJ VIAL IVP ONE ×2 (15:06→15:09)
[2019-06-08 15:19] LABS: CARBON DIOXIDE 25.2 mmol/L (21-32); CREATININE 0.8 mg/dL (0.7-1.3); POTASSIUM 4.2 mmol/L (3.5-5.1)
[2019-06-08 15:21] LABS: ALBUMIN 3.6 g/dL (3.4-5.0); TOTAL BILIRUBIN 0.7 mg/dL (0.0-1.0)
[2019-06-08 15:48] VITALS: BP 129/81
== END 2019-06-08 15:48 | disposition home or self-care (01) ==
LOC: MED 14:14
DX: A08.4 Viral intestinal infection, unspecified (principal); J45.909 Unspecified asthma, uncomplicated; F32.9 Major depressive disorder, single episode, unspecified; F41.9 Anxiety disorder, unspecified; Z79.899 Other long term (current) drug therapy; Z88.6 Allergy status to analgesic agent; Z88.8 Allergy status to other drugs, medicaments and biological substances
CPT/HCPCS: 36415; 80053; 83690; 85025; 96361; 96374; 96375; 99283; C9113; J2405

== ENCOUNTER 2019-06-17 17:34 | Emergency (ER) | payer OTHER ==
[~2019-06-17] VITALS: Ht 170.2 cm; Wt 100.2 kg
[2019-06-17 17:42] VITALS: BP 146/75
--- NOTE | 2019-06-17 17:47 | NUR ---
aaox4. vss. wait at lobby.
--- NOTE | 2019-06-17 18:10 | NUR ---
Pt taken to bed 3.
--- NOTE | 2019-06-17 18:44 | NUR ---
PATIENT PRESENTED TO ED C/O CONSTANT HEADACHE AND DIZZINESS FOR 3 WEEKS NOW, DENIES ANY TRAUMA OR INJURY, TODAY HE C/O VOMITTING X1, TOOK ONDANSETRON EFFECTIVE BUT HEADACHE AND DIZZINESS STILL PRESENT DESPITE OF TAKING TYLENOL, HE ALSO STATED " I FEEL TINGLING SENSATIONON ON BOTH HANDS, I DON'T WANT TO HAVE ANXIETY BECAUSE OF ALL THIS", AAOX4, RR EVEN AND UNLABORED, BED IN LOWEST POSITION, ED MD DR. PEDERSEN MADE AWARE. WILL CONTINUE TO MONITOR CLOSELY. MED HX: DEPRESSION, ANXIETY MED:TYLENOL, DEPAKOTE Er, ativan, ONDANSETRON
[2019-06-17] MEDS ORDERED: ACETAMINOPHEN EXTRA STRENGTH 500 MG TAB PO ONE (19:30)
[2019-06-17] MEDS ORDERED: METOCLOPRAMIDE 10 MG/2 ML INJ VIAL IM ONE (19:30)
--- NOTE | 2019-06-17 20:22 | NUR ---
PATIENT RESTING IN BED, RESTING COMFORTABLY, NO C/O PAIN AT THIS TIME, WILL CONTINUE TO MONITOR CLOSELY.
[2019-06-17 21:17] VITALS: BP 138/82
--- NOTE | 2019-06-17 21:17 | NUR ---
Patient discharged with v/s stable. Written and verbal after care instructions given and explained. Patient alert, oriented and verbalized understanding of instructions. Ambulatory with steady gait. All questions addressed prior to discharge. ID band removed. Patient advised to follow up with PMD. Rx of REGLAN 10MG, TRAMADOL 50MG AND TYLENOL 500MG given. Patient educated on indication of medication including possible reaction and side effects. Opportunity to ask questions provided and answered.
== END 2019-06-17 21:17 | disposition home or self-care (01) ==
LOC: MED 17:34
DX: R51 Headache (principal); J45.909 Unspecified asthma, uncomplicated; F41.9 Anxiety disorder, unspecified; F32.9 Major depressive disorder, single episode, unspecified; Z79.1 Long term (current) use of non-steroidal anti-inflammatories (NSAID); Z88.6 Allergy status to analgesic agent; Z88.8 Allergy status to other drugs, medicaments and biological substances
CPT/HCPCS: 96372; 99283; J2765

== ENCOUNTER 2019-06-18 08:39 | Emergency (ER) | payer OTHER ==
[~2019-06-18] VITALS: Ht 170.2 cm; Wt 95.3 kg
[2019-06-18 08:58] VITALS: BP 139/94
--- NOTE | 2019-06-18 09:03 | NUR ---
49/M BIB BROTHER c/o headache, anxiety x2days. seen here yesterday same s/s. med hx:anxiety, depression, asthma. PATIENT STATES PAIN OF 10/10 AT THIS TIME; PATIENT POSITIONED FOR COMFORT; HOB ELEVATED; BEDRAILS UP X1; BED DOWN. ER MD MADE AWARE OF PT STATUS.
[2019-06-18] MEDS ORDERED: KETOROLAC 30 MG/ML VIAL IVP ONE (09:05)
[2019-06-18] MEDS ORDERED: ONDANSETRON 4 MG/2 ML VIAL IVP ONE (09:05)
[2019-06-18] MEDS ORDERED: NACL 0.9% 1,000 ML IV ONE (09:05)
--- NOTE | 2019-06-18 09:25 | NUR ---
PT TAKEN TO CT VIA W/C, ACCOMPANIED BY ENVIRONMENTAL SAFETY SPECIALIST.
--- NOTE | 2019-06-18 10:04 | NUR ---
Patient appears to be resting comfortably in bed. DENIES PAIN. Vital Signs within normal limits. Respirations even and unlabored.WILL CONTINUE TO MONITOR.
[2019-06-18 10:10] LABS: ANION GAP 9.6 (8-16); CARBON DIOXIDE 27.4 mmol/L (21-32); CREATININE 0.9 mg/dL (0.7-1.3)
[2019-06-18 10:16] LABS: BASOPHILS % (AUTO) 0.8 % (0.0-2.0); EOSINOPHILS # (AUTO) 0.1 K/uL (0-0.4); EOSINOPHILS % (AUTO) 2.2 % (0.0-4.0); HEMOGLOBIN 16.8 g/dL (12.0-18.0); LYMPHOCYTES # (AUTO) 1.8 K/uL (2.0-11.5); LYMPHOCYTES % (AUTO) 35.2 % (20.5-51.1); MEAN CORPUSCULAR HEMOGLOBIN 33 pg (27-31); MEAN CORPUSCULAR HGB CONC 34 g/dL (33-37); MEAN CORPUSCULAR VOLUME 94.7 fL (80-94); MONOCYTES # (AUTO) 0.6 K/uL (0.8-1.0); MONOCYTES % (AUTO) 12.1 % (1.7-9.3); NEUTROPHILS # (AUTO) 2.6 K/uL (1.8-7.7); NEUTROPHILS % (AUTO) 49.7 % (42.2-75.2); PLATELET COUNT (AUTO) 220 K/uL (140-450); RED BLOOD CELL COUNT(AUTO) 5.17 MIL/uL (4.20-6.10); RED CELL DISTRIBUTION WIDTH 12.9 % (11.6-13.7); WHITE BLOOD COUNT (AUTO) 5.2 K/uL (4.8-10.8)
[2019-06-18 10:18] LABS: ALBUMIN 3.7 g/dL (3.4-5.0); TOTAL BILIRUBIN 0.4 mg/dL (0.0-1.0)
--- NOTE | 2019-06-18 11:01 | NUR ---
Patient being reevaluated by dr Wing at bedside.
[2019-06-18 11:09] VITALS: BP 109/66
--- NOTE | 2019-06-18 11:09 | NUR ---
Patient discharged with v/s stable. Written and verbal after care instructions given and explained. Patient alert, oriented and verbalized understanding of instructions. Ambulatory with steady gait. All questions addressed prior to discharge. ID band removed. Patient advised to follow up with PMD. Rx of fioricet given. Patient educated on indication of medication including possible reaction and side effects. Opportunity to ask questions provided and answered.
== END 2019-06-18 11:09 | disposition home or self-care (01) ==
LOC: MED 08:39
DX: R51 Headache (principal); R11.0 Nausea; H53.149 Visual discomfort, unspecified; J45.909 Unspecified asthma, uncomplicated; Z79.899 Other long term (current) drug therapy; Z88.6 Allergy status to analgesic agent; Z88.8 Allergy status to other drugs, medicaments and biological substances
CPT/HCPCS: 36415; 70450; 80053; 85025; 96374; 96375; 99284; J1885; J2405; J7030

== ENCOUNTER 2019-06-18 18:23 | Emergency (ER) | payer OTHER ==
[~2019-06-18] VITALS: Ht 170.2 cm; Wt 95.3 kg
[2019-06-18 18:53] VITALS: BP 127/74
--- NOTE | 2019-06-18 19:15 | NUR ---
PT TO ER BED 1
--- NOTE | 2019-06-18 19:15 | NUR ---
PATIENT PRESENTS TO ED WITH C/O SEVERE HEADACHE TODAY, +NAUSEA, +ANXIETY, WAS HERE THIS MORNING. PT STATES HE TOOK ATIVAN AT HOME AND THAT HELPED WITH ANXIETY. PATIENT STATES PAIN OF 10/10 AT THIS TIME; VSS; PATIENT POSITIONED FOR COMFORT; HOB ELEVATED; BEDRAILS UP X2; BED DOWN. ER MD MADE AWARE OF PT STATUS.
--- NOTE | 2019-06-18 20:02 | NUR ---
ER MD EXAMINING PATIENT AT BEDSIDE.
[2019-06-18] MEDS ORDERED: LORazepam 2 MG/ML VIAL IVP ONE (20:05)
[2019-06-18] MEDS ORDERED: KETOROLAC 30 MG/ML VIAL IVP ONE (20:05)
[2019-06-18] MEDS ORDERED: NACL 0.9% 1,000 ML IV ONE (20:05)
[2019-06-18 21:50] VITALS: BP 129/77
== END 2019-06-18 21:50 | disposition home or self-care (01) ==
LOC: MED 18:23
DX: R51 Headache (principal); F41.9 Anxiety disorder, unspecified; J45.909 Unspecified asthma, uncomplicated; Z88.8 Allergy status to other drugs, medicaments and biological substances; Z88.6 Allergy status to analgesic agent; Z79.1 Long term (current) use of non-steroidal anti-inflammatories (NSAID); Z79.899 Other long term (current) drug therapy
CPT/HCPCS: 96365; 96368; 99283; J1885; J2060; J7030

== ENCOUNTER 2019-07-01 09:11 | Emergency (ER) | payer OTHER ==
[~2019-07-01] VITALS: Ht 170.2 cm; Wt 97.1 kg
[2019-07-01 09:14] VITALS: BP 109/52
--- NOTE | 2019-07-01 09:25 | NUR ---
BIB BROTHER. AAO X4 C/O HEADACHE "PRESSURE LIKE" , "FEELING DEHYDRATED", DIZZINESS X YESTERDAY COMING FROM WORK. PT REPORTED HE FEELS ANXIOUS. PT STATES HE TOOK LORAZEPAM, TYLENOL RAPID RELEASE AND ZOFRAN THIS AM WITH SOME RELIEF. PERRLA, BRISK 3MM. EQUAL BILATERAL STRENGTH TO UPPER AND LOWER EXTREMITIES. HOB UP. BED SIDE RAILS UP X1. ON LOW BED POSITION, LOCKED. ER TO EVALUATE PT.
--- NOTE | 2019-07-01 09:25 | NUR ---
PATIENT AMBULATED TO BED 3.
--- NOTE | 2019-07-01 10:11 | NUR ---
DR MARK AT BEDSIDE FOR PT EVALUATION
[2019-07-01] MEDS ORDERED: MECLIZINE 25 MG TAB PO ONE (10:15)
[2019-07-01] MEDS ORDERED: KETOROLAC 60 MG/2 ML VIAL IM ONE (10:15)
[2019-07-01] MEDS ORDERED: ONDANSETRON 4 MG ODT PO ONE (10:15)
[2019-07-01 11:43] VITALS: BP 100/53
--- NOTE | 2019-07-01 11:45 | NUR ---
Patient discharged with v/s stable. Written and verbal after care instructions given and explained. Patient alert, oriented and verbalized understanding of instructions. Ambulatory with steady gait. All questions addressed prior to discharge. ID band removed. Patient advised to follow up with PMD. Rx of Zofran, Meclizine given. Patient educated on indication of medication including possible reaction and side effects. Opportunity to ask questions provided and answered.
== END 2019-07-01 11:45 | disposition home or self-care (01) ==
LOC: MED 09:11
DX: R51 Headache (principal); R42 Dizziness and giddiness; F41.9 Anxiety disorder, unspecified; R11.2 Nausea with vomiting, unspecified; H93.19 Tinnitus, unspecified ear; J45.909 Unspecified asthma, uncomplicated; F32.9 Major depressive disorder, single episode, unspecified; K58.9 Irritable bowel syndrome, unspecified; Z79.1 Long term (current) use of non-steroidal anti-inflammatories (NSAID); Z79.899 Other long term (current) drug therapy; Z88.8 Allergy status to other drugs, medicaments and biological substances; Z88.6 Allergy status to analgesic agent
CPT/HCPCS: 96372; 99283; J1885; J8597; Q0162

== ENCOUNTER 2019-07-06 21:58 | Emergency (ER) | payer OTHER ==
[~2019-07-06] VITALS: Ht 170.2 cm; Wt 108.9 kg
[2019-07-06 22:06] VITALS: BP 140/86
--- NOTE | 2019-07-06 22:09 | NUR ---
TO LOBBY A/W BED AMBULATORY
--- NOTE | 2019-07-06 23:35 | NUR ---
PT AMBULATED TO ER BED 12
--- NOTE | 2019-07-06 23:50 | NUR ---
49/M PRESENTED TO ED. AMBULATORY. STEADY GAIT. C/O ANXIETY ATTACK, HEADACHE, VOMITING, DEHYDRATED , BOTH EAR PAIN FOR 5 DAYS. HX ANXIETY, DEPRESSION, BIPOLAR. RX. LORAZEPAM, DEPAKOTE. TOOK RX MEDS PRESCRIBED. WILL CONTINUE TO MONITOR.
[2019-07-07] MEDS ORDERED: KETOROLAC 15 MG/ML VIAL IM ONE (00:45)
[2019-07-07 01:20] VITALS: BP 140/86
== END 2019-07-07 01:20 | disposition home or self-care (01) ==
LOC: MED 21:58
DX: G44.209 Tension-type headache, unspecified, not intractable (principal); F31.9 Bipolar disorder, unspecified; F41.9 Anxiety disorder, unspecified; J45.909 Unspecified asthma, uncomplicated; Z79.899 Other long term (current) drug therapy; Z79.1 Long term (current) use of non-steroidal anti-inflammatories (NSAID); Z88.8 Allergy status to other drugs, medicaments and biological substances; Z88.6 Allergy status to analgesic agent
CPT/HCPCS: 96372; 99283; J1885

== ENCOUNTER 2019-07-16 14:14 | Emergency (ER) | payer OTHER ==
[~2019-07-16] VITALS: Ht 170.2 cm; Wt 97.1 kg
[2019-07-16 14:42] VITALS: BP 141/88
--- NOTE | 2019-07-16 14:50 | NUR ---
PT WENT UP TO WINDOW AND TOLD ER ADMITTING HE IS NOW HAVING CHEST PAIN. PT DID NOT TELL TRIAGE HE WAS HAVING CHEST PAIN. EKG ORDER PLACED.
--- NOTE | 2019-07-16 15:06 | NUR ---
PT AMBULATED TO ER BED 9
--- NOTE | 2019-07-16 15:27 | NUR ---
PT C/O SEVERE THROBBING, BAND-LIKE HEADACHE, DIZZINESS, N/V, SICK OF ABDOMEN, STATED," IT HAS BEEN LIKE THIS FOR A WHILE." PATIENT STATES HEADACHE OF 10/10 AT THIS TIME; VSS; PATIENT POSITIONED FOR COMFORT; HOB ELEVATED; BEDRAILS UP X1; BED DOWN. ER MD MADE AWARE OF PT STATUS. PT IS ON MONITOR AND VSS.
[2019-07-16] MEDS ORDERED: METOCLOPRAMIDE 10 MG/2 ML INJ VIAL IVP ONE (15:30)
[2019-07-16] MEDS ORDERED: diphenhydrAMINE 50 MG/ML VIAL IVP ONE (15:30)
[2019-07-16] MEDS ORDERED: NACL 0.9% 1,000 ML IV ONE (15:30)
--- NOTE | 2019-07-16 16:10 | NUR ---
IV INITIATED TO LAC 20G INTACT AND PATENT. PT TOLERATED WELL. LAB DRAWN ORDERED. GAVE TO PUBLICITY CONSULTANT
[2019-07-16 16:39] LABS: BASOPHILS # (AUTO) 0.1 K/uL (0.00-0.22); BASOPHILS % (AUTO) 0.9 % (0.0-2.0); EOSINOPHILS # (AUTO) 0.1 K/uL (0-0.4); EOSINOPHILS % (AUTO) 1.2 % (0.0-4.0); HEMATOCRIT 49.5 % (36-52); LYMPHOCYTES # (AUTO) 1.3 K/uL (2.0-11.5); LYMPHOCYTES % (AUTO) 22.3 % (20.5-51.1); MEAN CORPUSCULAR HEMOGLOBIN 32 pg (27-31); MEAN CORPUSCULAR HGB CONC 34 g/dL (33-37); MEAN CORPUSCULAR VOLUME 94.2 fL (80-94); MONOCYTES # (AUTO) 0.6 K/uL (0.8-1.0); MONOCYTES % (AUTO) 10.8 % (1.7-9.3); NEUTROPHILS # (AUTO) 3.8 K/uL (1.8-7.7); NEUTROPHILS % (AUTO) 64.8 % (42.2-75.2); PLATELET COUNT (AUTO) 220 K/uL (140-450); RED BLOOD CELL COUNT(AUTO) 5.25 MIL/uL (4.20-6.10); RED CELL DISTRIBUTION WIDTH 13.2 % (11.6-13.7); WHITE BLOOD COUNT (AUTO) 5.9 K/uL (4.8-10.8)
[2019-07-16] MEDS ORDERED: ONDANSETRON 4 MG/2 ML VIAL IVP ONE (16:40)
[2019-07-16 16:41] LABS: ANION GAP 11.6 (8-16); CARBON DIOXIDE 28.6 mmol/L (21-32); CREATININE 0.9 mg/dL (0.7-1.3); POTASSIUM 4.2 mmol/L (3.5-5.1)
[2019-07-16 16:48] LABS: ALBUMIN 3.9 g/dL (3.4-5.0); TOTAL BILIRUBIN 0.5 mg/dL (0.0-1.0)
[2019-07-16] MEDS ORDERED: VALPROIC ACID 250 MG/5 ML UDC PO ONE (17:25)
[2019-07-16 18:15] VITALS: BP 119/72
--- NOTE | 2019-07-16 18:15 | NUR ---
Patient discharged with v/s stable. Written and verbal after care instructions given and explained. Patient alert, oriented and verbalized understanding of instructions. Ambulatory with steady gait. All questions addressed prior to discharge. ID band removed. Patient advised to follow up with PMD. Rx of Reglan given. Patient educated on indication of medication including possible reaction and side effects. Opportunity to ask questions provided and answered.
== END 2019-07-16 18:15 | disposition home or self-care (01) ==
LOC: MED 14:14
DX: R51 Headache (principal); R89.2 Abnormal level of other drugs, medicaments and biological substances in specimens from other organs, systems and tissues; R42 Dizziness and giddiness; R11.10 Vomiting, unspecified; J45.909 Unspecified asthma, uncomplicated; Z79.82 Long term (current) use of aspirin; Z79.899 Other long term (current) drug therapy; Z88.8 Allergy status to other drugs, medicaments and biological substances
CPT/HCPCS: 36415; 80053; 85025; 93005; 96361; 96374; 96375; 99284; J1200; J2405; J2765; J7030

== ENCOUNTER 2019-07-20 05:35 | Emergency (ER) | payer OTHER ==
[~2019-07-20] VITALS: Ht 170.2 cm; Wt 97.1 kg
[2019-07-20 05:37] VITALS: BP 150/90
--- NOTE | 2019-07-20 05:40 | NUR ---
TO LOBBY A/W BED, AMBULATORY
--- NOTE | 2019-07-20 07:05 | NUR ---
Radha milligan in [facility] - 07/20/19 at 0710 by PRATIK PT TAKEN TO BED 6
--- NOTE | 2019-07-20 07:09 | NUR ---
Radha milligan in [facility] - 07/20/[address] Lozada examining patient.
--- NOTE | 2019-07-20 07:15 | NUR ---
PT TAKEN TO BED 5
--- NOTE | 2019-07-20 07:20 | NUR ---
c/o headache 5/10 and dizziness x1 week. pt reports taking meclizine at home and made him feel worse. pt states he has felt nauseaus but has not vomited, just "burped with a little reflux". Abdomen soft/flat/non tender. lbm 07/19/19. Pt denies drug/alcohol use. Bed in low position, side rail up x1.
[2019-07-20] MEDS ORDERED: ONDANSETRON 4 MG ODT PO ONE (07:25)
[2019-07-20] MEDS ORDERED: KETOROLAC 60 MG/2 ML VIAL IM ONE (07:25)
--- NOTE | 2019-07-20 08:40 | NUR ---
PT RESTING IN BED, AROUSABLE TO VERBAL STIMULI. NO NEW NEEDS AT THIS TIME
[2019-07-20 10:17] VITALS: BP 144/91
== END 2019-07-20 10:17 | disposition home or self-care (01) ==
LOC: MED 05:35
DX: J45.909 Unspecified asthma, uncomplicated (principal); Z88.6 Allergy status to analgesic agent; Z88.8 Allergy status to other drugs, medicaments and biological substances; Z79.899 Other long term (current) drug therapy
CPT/HCPCS: 99283; J1885; Q0162

== ENCOUNTER 2019-07-20 19:33 | Emergency (ER) | payer OTHER ==
[~2019-07-20] VITALS: Ht 170.2 cm; Wt 95.0 kg
[2019-07-20 19:39] VITALS: BP 139/88
--- NOTE | 2019-07-20 19:42 | NUR ---
PT AMBULATED TO ER BED 4
--- NOTE | 2019-07-20 19:55 | NUR ---
49 YO M BIB SELF FROM HOME PRESENTS TO ED FOR THE SECOND TIME TODAY C/O 10/10 MORENO AND DIZZINESS X 1 WEEK. PT STATES "THEY TOLD ME TO COME BACK IF I DON'T FEEL BETTER AND I STILL DON'T FEEL GOOD. I TOOK A MECLIZINE AT HOME AND IT MADE ME FEEL WORSE". -- PT AWAKE, A/O X 4, CALM, COOPERATIVE. PT IS TALKATIVE, HARD TO STAY ON TRACK WHILE ANSWERING QUESTIONS. POOR HISTORIAN. -- SKIN PINK, DRY, WARM. BREATHING EVEN, UNLABORED. PMH-- DENIES
--- NOTE | 2019-07-20 20:00 | NUR ---
DR. MILLIGAN EVALUATING AT BEDSIDE.
[2019-07-20] MEDS ORDERED: diphenhydrAMINE 50 MG/ML VIAL IVP ONE (20:20)
[2019-07-20] MEDS ORDERED: METOCLOPRAMIDE 10 MG/2 ML INJ VIAL IVP ONE (20:20)
[2019-07-20] MEDS ORDERED: NACL 0.9% 1,000 ML IV ONE (20:20)
[2019-07-20] MEDS ORDERED: ONDANSETRON 4 MG TAB PO ONE (20:35)
[2019-07-20] MEDS ORDERED: ACETAMINOPHEN 325 MG TAB PO ONE (20:35)
[2019-07-20 22:25] VITALS: BP 132/71
--- NOTE | 2019-07-20 22:25 | NUR ---
DISCHARGE PAPERS GIVEN TO PT. PT STATES NO PAIN, NO N/V, AND NO DIZZINESS. STATES RELIEF. INSTRUCTED TO F/U WITH NEUROLOGY AND PCP AND INSTRUCTED WHEN TO RETURN TO ER. GIVEN F/U INFO FOR NUROLOGY. PT VERBALLIZED UNDERSTANDING OF DC INSTRUCTIONS. ALL QEUSTIONS ANSWERED.
== END 2019-07-20 22:25 | disposition home or self-care (01) ==
LOC: MED 19:33
DX: R51 Headache (principal); G89.29 Other chronic pain; R42 Dizziness and giddiness; J45.909 Unspecified asthma, uncomplicated; Z79.899 Other long term (current) drug therapy; Z88.6 Allergy status to analgesic agent; Z88.8 Allergy status to other drugs, medicaments and biological substances
CPT/HCPCS: 96360; 99283; J7030; Q0162

== ENCOUNTER 2019-08-02 10:08 | Emergency (ER) | payer OTHER ==
[~2019-08-02] VITALS: Ht 170.2 cm; Wt 96.6 kg
[2019-08-02 10:12] VITALS: BP 147/95
--- NOTE | 2019-08-02 10:15 | NUR ---
PT TO BED 2 WITH STEADY GAIT
--- NOTE | 2019-08-02 10:16 | NUR ---
Patient being evaluated by DR TELLEZ at bedside.
--- NOTE | 2019-08-02 10:17 | NUR ---
49/M BIB SELF C/O HEADACHE AND NAUSEA X 1 WEEK. PAIN 9/10. STATES HE FEELS VERY DEHYDRATED.PMH- ANXIETY, BIPOLAR. RX- LORAZAPAM. PATIENT POSITIONED FOR COMFORT; HOB ELEVATED; BEDRAILS UP X1; BED DOWN. ER MD MADE AWARE OF PT STATUS.
[2019-08-02] MEDS ORDERED: LORazepam 2 MG/ML VIAL IM ONE (10:20)
[2019-08-02] MEDS ORDERED: ONDANSETRON 4 MG ODT PO ONE (10:20)
[2019-08-02 10:50] VITALS: BP 121/75
== END 2019-08-02 10:50 | disposition home or self-care (01) ==
LOC: MED 10:08
DX: F41.9 Anxiety disorder, unspecified (principal); R51 Headache; R42 Dizziness and giddiness; J45.909 Unspecified asthma, uncomplicated; Z79.899 Other long term (current) drug therapy; Z88.6 Allergy status to analgesic agent; Z88.8 Allergy status to other drugs, medicaments and biological substances
CPT/HCPCS: 81002; 96372; 99283; J2060; Q0162